=== PATIENT | female | born 1985 | race Two or more races ===

== ENCOUNTER 2017-10-30 14:40 | Inpatient (IN) | payer OTHER ==
[2017-10-30 14:50] VITALS: BMI 31.2
[2017-10-30] MEDS ORDERED: Lactated Ringer's 1,000 ML IV ONE (14:59)
[2017-10-30] MEDS ORDERED: Lactated Ringer's 1,000 ML IV SCH (15:00)
[2017-10-30] MEDS ORDERED: Oxytocin 30 UNIT 30 UNITS/500 ML BAG IV ONE (17:17)
[2017-10-30 18:22] LABS: BASO % 0.3 % (0.0-2.0); EOS % 0.2 % (0.0-4.0); HEMOGLOBIN 13.3 g/dL (12.0-16.0); LYMPH # 2.6 K/uL (1.0-4.3); LYMPH % 19.1 % (20.0-40.0); MEAN CELL VOLUME 95.6 fl (81.0-99.0); MEAN CORPUSCULAR HEMOGLOBIN 32.3 pg (27.0-31.0); MEAN CORPUSCULAR HGB CONC 33.8 g/dL (33.0-37.0); MEAN PLATELET VOLUME 8.5 fl (7.2-11.7); MONO # 0.9 K/uL (0.0-0.8); MONO % 6.3 % (0.0-10.0); NEUT # 10.2 K/uL (1.8-7.0); NEUT % 74.1 % (50.0-75.0); RBC 4.12 Mil/uL (3.80-5.20); RED CELL DISTRIBUTION WIDTH 13.2 % (11.5-14.5); WHITE BLOOD COUNT 13.8 K/uL (4.8-10.8)
[2017-10-30] MEDS ORDERED: Fentanyl/Bupivacaine HCl 250 ML EPI ONE (18:46)
[2017-10-30] MEDS ORDERED: Lidocaine 2% MPF (5 ml) Inj ONE (22:09)
[2017-10-30] MEDS ORDERED: Oxytocin 30 UNITS in Sodium Chloride 0.9% 500 ML IV ONE (23:08)
[2017-10-30] MEDS ORDERED: OXYTOCIN/0.9 % NS 20 UNIT/1,000 ML BAG IV SCH (23:15)
[2017-10-31] MEDS ORDERED: Benzocaine/Menthol SPRAY TOP PRN (04:50)
[2017-10-31] MEDS ORDERED: Oxycodone/Acetaminophen 5/325 mg Tab PO PRN ×2 (04:50→06:36)
[2017-10-31] MEDS ORDERED: OXYTOCIN/0.9 % NS 20 UNIT/1,000 ML BAG IV SCH (06:36)
[2017-10-31] MEDS: Benzocaine/Menthol SPRAY TOP PRN (08:26)
[2017-10-31] MEDS: Multivitamin With Minerals Tab PO SCH (08:26)
[2017-10-31] MEDS ORDERED: Multivitamin With Minerals Tab PO SCH (09:00)
--- NOTE | 2017-10-31 11:01 | OBPN ---
Datetime: 10/31/2017 02:10 IP Progress Impression: Normal progression of labor; Reassuring heart rate IP Procedures: Sterile Vag Exam IP Progress Plan: Continue present management; Anticipate Vaginal Delivery Contraction Comments Provider: 2-4m FHR - Baseline A Provider: 160 Presentation-Admit: Vertex IP Progress Note Comment: She feels fine. She had epidural redone by Dr Louie and felt better. Pitoci n started and now she feels some pressure Second stage of labor PLAN: Pioticn at 8miu/h anticipate NICHD Accel Fetus A IP Provider: 15X15 FHR Category Provider Fetus A: Category I NICHD Variability Prov Fetus A: Moderate 6-25bpm Dilatation, Provider: 10 Effacement, Provider: 100 Station, Provider: 1 NICHD Decel Fetus A IP Provider: Early
--- NOTE | 2017-10-31 11:07 | OBPN ---
Datetime: 10/30/2017 19:35 IP Progress Impression: Reassuring heart rate IP Progress Plan: Augmentation; Anesthesia consult; Anticipate Vaginal Delivery Contraction Comments Provider: 2-4m Presentation-Admit: Vertex IP Progress Note Comment: Notifide that she felt pressure. She rec'd epidural but not helping much. ..Pitocin not started SVE 2-3cm A: Latent phase of labor PLAN: anesthesia called dagain to re-evaluate FHR Category Provider Fetus A: Category I Dilatation, Provider: 2-3 Effacement, Provider: 75 Station, Provider: -2
--- NOTE | 2017-10-31 11:07 | OBADHP ---
Datetime: 10/30/2017 17:19 FHR - Baseline A Provider: 120 Membranes, Provider: Bulging Gestation - Est Wks by US: 39.4 Vital Signs Provider: Reviewed; Within Normal Limits NICHD Variability Prov Fetus A: Moderate 6-25bpm NICHD Accel Fetus A IP Provider: 15X15 FHR Category Provider Fetus A: Category I NICHD Decel Fetus A IP Provider: None Dilatation, Provider: 2 cm Station, Provider: posterior Datetime: 10/30/2017 14:00 Pelvic Type - PN: Adequate Extremities - PN: Normal Abdomen - PN: Normal Back - PN: Normal Breast - PN: Not Done Lungs - PN: Normal Heart - PN: Normal Thyroid - PN: Normal Neurologic - PN: Normal HEENT - PN: Normal General - PN: Normal Contraction Comments Provider: occasional IP Hx Assessment: The History has been Reviewed and is Current IP Chief Complaint: Uterine contractions; Maternal discomfort Genitourinary Exam: Not Done DTRs - PN: Not Done EGA AdmitDate IP: 39.4 IP Admit Plan: Admit to unit; Initiate labor induction protocol Datetime: 10/30/2017 13:53 Admit Comment, IP Provider: 32 y/o female 39.5 wk GA c/o painful contractions that began at 2:20AM, and vaginal spotting. She denies vaginal fluid loss. She endorses good movement. Last s exually active January 2017. PNC: Dr. Troncoso Pmh: denies Famhx: parents have HTN DM Socialhx: denies etoh, tobacco, recreational drug use PSurg: denies HomeRx: Levothyroxine, vitamins Allergies: NKDA Gen: patient is not in acute distress, but is uncomfortable Heart: RRR, S1S2 present Lung: clear to auscultation bilaterally Abd: gravid, normal bowel sounds, soft, nontender SVE: (Chaperoned by Dr. Troncoso) 1cm dilated, posterior Extremities: no pedal edema, no calf tenderness Assessment and Plan: 32 y/o female 39.5 wk GA intrauterine c/o painful contractions Nitrous oxide for pain management Admit patient to L_D for IOL Cbc, type and screen ordered GBS negative Can have epidural, anesthesiology consulted Tangela Gonzalez PGYI OB Hospitalist on-call. With PGY1, I saw and examined DESTINY...agree with note. Discussion about l abor, delivery, pain managment, and . Presentation-Admit: Vertex IP Adm Impression: Term, intrauterine ; No Active Labor; Intact Membranes
--- NOTE | 2017-10-31 11:07 | OBPN ---
Datetime: 10/30/2017 17:19 IP Progress Impression Other: slow progression IP Procedures: Sterile Vag Exam IP Progress Plan: Augmentation Membranes, Provider: Bulging FHR - Baseline A Provider: 120 Gestation - Est Wks by US: 39.4 IP Progress Note Comment: S: Patient laying in bed comfortably w/ nitrous oxide mask on O: SVE (chaperoned by Nurse Sarah) 2 cm dilated, posterior, membrane bulging A: 32 y/o female 39.5 wk GA intrauterine with slow progression of labor requesti ng augmentation P: cont present management and start pitocin 30 units in 500mL IV, 2mL/hr to start then 1-2mL ever y 30 minutes until contractions are 2-3 mins apart NAN Brown OB Hospitalist on-call...aware of progress/agree with Pitocin augmentation MAHNDO Vital Signs Provider: Reviewed; Within Normal Limits NICHD Accel Fetus A IP Provider: 15X15 FHR Category Provider Fetus A: Category I NICHD Variability Prov Fetus A: Moderate 6-25bpm Dilatation, Provider: 2 cm Station, Provider: posterior NICHD Decel Fetus A IP Provider: None Datetime: 10/30/2017 14:00 Contraction Comments Provider: occasional Datetime: 10/30/2017 13:53 Presentation-Admit: Vertex
--- NOTE | 2017-10-31 11:08 | OBPN ---
Datetime: 10/30/2017 19:35 IP Progress Note Comment: Notifide that she felt pressure. She rec'd epidural but not helping much. ..Pitocin not started SVE 2-3cm A: Latent phase of labor PLAN: anesthesia called didier to re-evaluate ADD: AROM attempted but unable
[2017-11-01] MEDS: Levothyroxine 25 MCG TAB PO SCH (06:54)
[2017-11-01] MEDS: Multivitamin With Minerals Tab PO SCH (10:38)
[2017-11-01 12:46] LABS: BASO # 0.1 K/uL (0.0-0.2); BASO % 0.3 % (0.0-2.0); EOS % 0.3 % (0.0-4.0); LYMPH # 3.8 K/uL (1.0-4.3); MEAN CORPUSCULAR HGB CONC 33.7 g/dL (33.0-37.0); MEAN PLATELET VOLUME 7.9 fl (7.2-11.7); MONO # 1.1 K/uL (0.0-0.8); MONO % 6.6 % (0.0-10.0); NEUT # 12.3 K/uL (1.8-7.0); NEUT % 70.8 % (50.0-75.0); RBC 3.42 Mil/uL (3.80-5.20); RED CELL DISTRIBUTION WIDTH 13.2 % (11.5-14.5); WHITE BLOOD COUNT 17.4 K/uL (4.8-10.8)
[2017-11-01] MEDS: Benzocaine/Menthol SPRAY TOP PRN (20:25)
--- NOTE | 2017-11-02 01:21 | OBPPN ---
Datetime: 11/01/2017 13:17 PP Pain Prov: Within normal limits PP Nausea Prov: Denies PP Flatus Prov: Yes PP Breasts Prov: Normal PP Heart Prov: Normal PP Lungs Prov: Normal PP Abdomen/Uterus Prov: Normal PP Lochia Prov: Normal PP Vulva/Perineum Prov: Normal PP CVA Tenderness Prov: Normal PP Extremities Prov: Normal PP Comments Phys Exam Prov: Abdomen soft, nontender, nondistended Uterus firm, below umbilicus No deep calf tenderness bilaterally PP Impression Prov: Normal progression PP Plan Prov: Continue present management PP Progress Note Prov: day #1 status post , patient recovering well Ambulation CBC Pain control Regular diet Anticipate discharge home tomorrow IP PP Procedures: None Vital Signs Provider PP: Reviewed; Within Normal Limits
[2017-11-02] MEDS: Levothyroxine 25 MCG TAB PO SCH ×2 (06:17→06:18)
--- NOTE | 2017-11-02 08:49 | OBDCSUM ---
Datetime: 11/02/2017 08:47 Discharged to, Provider: Home Follow up at, Provider: Tamera Disch Instr Activity: Normal activity Disch Instr Diet: Regular Discharge Instructions, Provider: Routine instructions given Discharge Diagnosis, Provider: Term Delivered Disch Referrals: None Contraception discussed, Prov: Yes Disch Activity Restrictions: No sexual activity; Nothing in vagina - Pioneer, tampons, douche Discharge Comment, Provider: Patient cleared for discharge Contraception after Delivery: Undecided
--- NOTE | 2017-11-02 08:49 | OBPPN ---
Datetime: 11/02/2017 08:47 PP Pain Prov: Within normal limits PP Nausea Prov: Denies PP Flatus Prov: Yes PP Breasts Prov: Not Done PP Heart Prov: Normal PP Lungs Prov: Normal PP Abdomen/Uterus Prov: Normal PP Lochia Prov: Not Done PP Vulva/Perineum Prov: Not Done PP CVA Tenderness Prov: Normal PP Extremities Prov: Normal PP Impression Prov: Normal progression PP Plan Prov: Discharge PP Progress Note Prov: Patient doing well clear for discharge Vital Signs Provider PP: Reviewed
--- NOTE | 2017-11-02 09:05 | OBDS ---
DELIVERY PERSONNEL Delivery Doctor: Adrian Troncoso DO Single Stayer Operator: Caitie Forbes RN Anesthesiologist: Antonia Louie MD Resident: Dr Prashant Delcid MATERNAL INFORMATION Delivery Anesthesia: Epidural Medications in Delivery: Pitocin Estimated Blood Loss (ml): 200 Placenta Cultured: Yes Maternal Complications: None Provider Comments: Sridevi had SROM at 3:45am and noted to have thin meconium. Over intact perineum, N of live . Terminal meconium noted and Peds present for delivery. Infant was delivered and bulb suctioned. Infant was crying and placed on mother's chest for skin to skin. Placenta deliveed intact spontaneously. EBL 200cc She remained stable LABOR SUMMARY EDC: 11/02/2017 00:00 No. Babies in Womb: 1 Attempted: No Labor Anesthesia: Epidural LABOR INFORMATION Reason for Induction: Not Applicable Complete Dilatation: 10/31/2017 02:15 Oxytocin: Augmentation Group B Beta Strep: Negative Steroids Given: None Reason Steroids Not Administered: Not Applicable MEMBRANES Membranes Rupture Method: Spontaneous Rupture of Membranes: 10/31/2017 03:45 Length of Rupture (hrs): 0.38 Amniotic Fluid Color: Light Meconium Amniotic Fluid Amount: Large Amniotic Fluid Odor: None STAGES OF LABOR Stage 2 hrs: 1 Stage 2 min: 53 Stage 3 hrs: 0 Stage 3 min: 5 VAGINAL DELIVERY Episiotomy: None Laceration Extension: Second Degree Laceration Type: Perineal Laceration Repair: Yes Laceration Repair Note: Local anesthesia infiltrated 4-5cc...Perineum repaired with 2.0 Vicryl Rapid e suture Initial Vag Sponge Count: 10 laps Final Vag Sponge Count: 10 laps Initial Vag Sharps Count: 2 sutures _ 1 needle Final Vag Sharps Count: 2 sutures _ 1 needle Sponge Count Correct: Yes Sharps Count Correct: Yes Count Comment: 10 lap pads one syringe one suture BABY A INFORMATION Infant Delivery Date/Time: 10/31/2017 04:08 Method of Delivery: Vaginal Method of Delivery: Vaginal Born in Route : No : N/A Forceps: N/A Vacuum Extraction: N/A Shoulder Dystocia : No SHOULDER DYSTOCIA BABY A Delivery Date/Time: 10/31/2017 04:08 PRESENTATION/POSITION BABY A Presentation: Cephalic Cephalic Presentation: Vertex Breech Presentation: N/A PLACENTA INFORMATION BABY A Placenta Delivery Time : 10/31/2017 04:13 Placenta Method of Delivery: Spontaneous Placenta Status: Delivered SCORES BABY A Heart Rate 1 min: >100 bpm Resp Effort 1 min: Good Cry Reflex Irritability 1 min: Cough or Sneeze or Pulls Away Muscle Tone 1 min: Active Motion Color 1 min: Body Foreman, Extremities Blue Resuscitation Effort 1 min: Tactile Stimulation SCORE 1 MIN: 9 Heart Rate 5 min: >100 bpm Resp Effort 5 min: Good Cry Reflex Irritability 5 min: Cough or Sneeze or Pulls Away Muscle Tone 5 min: Active Motion Color 5 min: Body Foreman, Extremities Blue Resuscitation Effort 5 min: N/A SCORE 5 MIN: 9 INFORMATION BABY A Gestational Age at Delivery: 39.5 Gestational Status: Term Infant Outcome : Liveborn Condition : Stable Sex: Female Infant Sex: Female IDENTIFICATION/MEDS BABY A ID Band Number: [id number] ID Band Location: Left Leg; Left Arm WEIGHT/LENGTH BABY A Birthweight (gms): 2975 Weight (lb): 6 Infant Weight (oz): 9 CORD INFORMATION BABY A No. Cord Vessels: 3 Nuchal Cord : N/A Nuchal Cord Other: 0 True Knot: 0 Infant Cord pH Baby Arterial: N/A Infant Cord pH Baby Venous: N/A Cord Blood Taken: Yes Suction: Mouth; Nose ASSESSMENT BABY A Complications: Meconium Physical Findings at Delivery: Within Normal Limits Infant Respirations: Appears Normal Polysom Tech/ALS Called : No Care By: Dr Last Transferred To: Remains with Mother
--- NOTE | 2017-11-02 09:08 | OBDS ---
DELIVERY PERSONNEL Delivery Doctor: Adrian Troncoso DO Adjunct Professor: Caitie Forbes RN Anesthesiologist: Antonia Louie MD Resident: Dr Prashant Delcid MATERNAL INFORMATION Delivery Anesthesia: Epidural Medications in Delivery: Pitocin Estimated Blood Loss (ml): 200 Placenta Cultured: Yes Maternal Complications: None Provider Comments: Sridevi had SROM at 3:45am and noted to have thin meconium. Over intact perineum, N of live . Terminal meconium noted and Peds present for delivery. Infant was delivered and bulb suctioned. Infant was crying and placed on mother's chest for skin to skin. Placenta deliveed intact spontaneously. EBL 200cc She remained stable LABOR SUMMARY EDC: 11/02/2017 00:00 No. Babies in Womb: 1 Attempted: No Labor Anesthesia: Epidural LABOR INFORMATION Reason for Induction: Not Applicable Complete Dilatation: 10/31/2017 02:15 Oxytocin: Augmentation Group B Beta Strep: Negative Steroids Given: None Reason Steroids Not Administered: Not Applicable MEMBRANES Membranes Rupture Method: Spontaneous Rupture of Membranes: 10/31/2017 03:45 Length of Rupture (hrs): 0.38 Amniotic Fluid Color: Light Meconium Amniotic Fluid Amount: Large Amniotic Fluid Odor: None STAGES OF LABOR Stage 2 hrs: 1 Stage 2 min: 53 Stage 3 hrs: 0 Stage 3 min: 5 VAGINAL DELIVERY Episiotomy: None Laceration Extension: Second Degree Laceration Type: Perineal Laceration Repair: Yes Laceration Repair Note: Local anesthesia infiltrated 4-5cc...Perineum repaired with 2.0 Vicryl Rapid e suture Initial Vag Sponge Count: 10 laps Final Vag Sponge Count: 10 laps Initial Vag Sharps Count: 2 sutures _ 1 needle Final Vag Sharps Count: 2 sutures _ 1 needle Sponge Count Correct: Yes Sharps Count Correct: Yes Count Comment: 10 lap pads one syringe one suture BABY A INFORMATION Infant Delivery Date/Time: 10/31/2017 04:08 Method of Delivery: Vaginal Born in Route : No : N/A Forceps: N/A Vacuum Extraction: N/A Shoulder Dystocia : No SHOULDER DYSTOCIA BABY A Infant Delivery Date/Time: 10/31/2017 04:08 PRESENTATION/POSITION BABY A Presentation: Cephalic Cephalic Presentation: Vertex Breech Presentation: N/A PLACENTA INFORMATION BABY A Placenta Delivery Time : 10/31/2017 04:13 Placenta Method of Delivery: Spontaneous Placenta Status: Delivered SCORES BABY A Heart Rate 1 min: >100 bpm Resp Effort 1 min: Good Cry Reflex Irritability 1 min: Cough or Sneeze or Pulls Away Muscle Tone 1 min: Active Motion Color 1 min: Body Carlock, Extremities Blue Resuscitation Effort 1 min: Tactile Stimulation SCORE 1 MIN: 9 Heart Rate 5 min: >100 bpm Resp Effort 5 min: Good Cry Reflex Irritability 5 min: Cough or Sneeze or Pulls Away Muscle Tone 5 min: Active Motion Color 5 min: Body Carlock, Extremities Blue Resuscitation Effort 5 min: N/A SCORE 5 MIN: 9 INFANT INFORMATION BABY A Gestational Age at Delivery: 39.5 Gestational Status: Term Outcome : Liveborn Infant Condition : Stable Infant Sex: Female IDENTIFICATION/MEDS BABY A ID Band Number: [id number] ID Band Location: Left Leg; Left Arm WEIGHT/LENGTH BABY A Birthweight (gms): 2975 Weight (lb): 6 Weight (oz): 9 CORD INFORMATION BABY A No. Cord Vessels: 3 Nuchal Cord : N/A Nuchal Cord Other: 0 True Knot: 0 Infant Cord pH Baby Arterial: N/A Cord pH Baby Venous: N/A Cord Blood Taken: Yes Suction: Mouth; Nose ASSESSMENT BABY A Complications: Meconium Physical Findings at Delivery: Within Normal Limits Respirations: Appears Normal Packing Room Supervisor/ALS Called : No Care By: Dr Last Transferred To: Remains with Mother
[2017-11-02] MEDS: Multivitamin With Minerals Tab PO SCH (09:22)
[2017-11-02 20:15] VITALS: BP 144/93; PULSE 57; RESP 18; TEMP 98; O2SAT 100
== END 2017-11-02 14:35 | disposition home or self-care (01) | DRG 775 ==
LOC: H.EROB2 14:40 → H.L&D 14:59 → H.OB/GYN 10-31 06:35
PROVIDERS: ADMIT Obstetrics & Gynecology; ATTEND Obstetrics & Gynecology
PROC: 0KQM0ZZ Repair Perineum Muscle, Open Approach (ICD-10-PCS; principal; 2017-10-30)
PROC: 10E0XZZ Delivery of Products of Conception, External Approach (ICD-10-PCS; 2017-10-30)
PROC: 4A1HXCZ Monitoring of Products of Conception, Cardiac Rate, External Approach (ICD-10-PCS; 2017-10-30)
DX: O77.0 Labor and delivery complicated by meconium in amniotic fluid (principal); Z37.0 Single live birth; O70.1 Second degree perineal laceration during delivery; Z3A.39 39 weeks gestation of pregnancy